=== PATIENT | male | born 1990 | race Caucasian/White ===

== ENCOUNTER 2019-12-17 11:02 | Emergency (ER) | payer MEDICAID ==
[~2019-12-17] VITALS: Ht 175.3 cm; Wt 73.9 kg
[2019-12-17 11:05] VITALS: Ht 175.3 cm; Wt 73.9 kg
[2019-12-17 12:44] VITALS: BP 115/67
== END 2019-12-17 12:40 | disposition home or self-care (01) ==
LOC: ED 11:02
DX: S46.911A Strain of unspecified muscle, fascia and tendon at shoulder and upper arm level, right arm, initial encounter (principal); X58.XXXA Exposure to other specified factors, initial encounter; Y93.89 Activity, other specified; Y92.89 Other specified places as the place of occurrence of the external cause; Y99.8 Other external cause status
CPT/HCPCS: 36415